=== PATIENT | male | born 1960 ===

== ENCOUNTER 2020-06-03 17:30 | Inpatient (IN) | payer OTHER ==
[~2020-06-03] VITALS: Ht 170.2 cm; Wt 89.0 kg
[2020-06-03] MEDS ORDERED: ONDANSETRON 4 MG/2 ML (SDV) Z0FRAN IV PRN (18:30)
[2020-06-03] MEDS ORDERED: ACETAMINOPHEN 325 MG TABLET PO PRN (18:30)
[2020-06-03] MEDS ORDERED: guaiFENesin SYRUP 100 MG/5 ML 10 ML (ROBITUSSIN SF) PO PRN (18:30)
--- NOTE | 2020-06-03 20:45 | NUR ---
BRIDGETTE HUTCHISON admitted to room 427-1, with an admitting diagnosis of Covid, on 06/03/20 from [facility] via EMS. BRIDGETTE HUTCHISON introduced to surroundings, call light, bed controls, phone, TV, temperature control, lights, meal times, smoking policy, visitor policy, side rail policy, bathrooms and showers. Patient Rights given to patient in the handbook. BRIDGETTE HUTCHISON verbalizes understanding that [facility] is not responsible for the loss or damage to any personal effects or valuables that are kept in the patients possession during their hospitalization.
[2020-06-03 21:01] VITALS: BP 114/67
--- NOTE | 2020-06-03 21:40 | NUR ---
2129 - O2 increased to 5L NC due to o2 sats falling into 85-87%. RT notified. 2134 - RT here at this time - Nasal Cannula changed to Hi Aftab and increased to 6L - O2 saturation remains in around 87% 2139 - flow increased to 8L (hi-aftab) - pt able to maintain o2 saturation above 90% Will continue to monitor.
[2020-06-03] MEDS ORDERED: AZITHROMYCIN 250 MG TAB (ZITHROMAX) PO SCH (22:00)
[2020-06-03] MEDS ORDERED: dexAMETHasone 6 MG TAB (DECADRON) PO SCH (22:00)
[2020-06-03] MEDS ORDERED: cefTRIAXone FOR IV USE 1,000 MG in WATER (STERILE) FOR INJECTION 10 ML IV SCH (22:00)
[2020-06-03 22:09] VITALS: BP 114/76
[2020-06-03] MEDS: RT-ALBUTEROL INHALER HFA (VENTOLIN HFA) 18 GM IH PRN (23:24)
[2020-06-03 23:57] VITALS: BP 114/70
[2020-06-04] VITALS (8 sets, daily range): BP systolic 119–146; BP diastolic 70–83
[2020-06-04] MEDS: RT-ALBUTEROL INHALER HFA (VENTOLIN HFA) 18 GM IH SCH ×3 (02:37→22:17)
[2020-06-04 05:27] LABS: HEMOGLOBIN 12.9 g/dL (13.3-17.7); WHITE BLOOD COUNT 7.4 10^3/uL (4.3-11.0)
[2020-06-04 05:37] LABS: ALBUMIN 3.2 GM/DL (3.2-4.5); CHLORIDE 99 MMOL/L (98-107); POTASSIUM 3.8 MMOL/L (3.6-5.0); SODIUM 137 MMOL/L (135-145)
[2020-06-04 05:39] LABS: GLUCOSE 137 MG/DL (70-105)
[2020-06-04 05:40] LABS: TOTAL PROTEIN 6.9 GM/DL (6.4-8.2)
[2020-06-04 05:41] LABS: BILIRUBIN,TOTAL 0.7 MG/DL (0.1-1.0); CARBON DIOXIDE 26 MMOL/L (21-32)
[2020-06-04 05:43] LABS: ALKALINE PHOSPHATASE 135 U/L (40-136); CREATININE SERUM 0.76 MG/DL (0.60-1.30); GFR ESTIMATED > 60
[2020-06-04 05:44] LABS: BUN/CREATININE RATIO 16
[2020-06-04 05:46] LABS: ALANINE AMINOTRANSFERASE 197 U/L (0-55)
[2020-06-04] MEDS: dexAMETHasone 6 MG TAB (DECADRON) PO SCH (09:05)
[2020-06-04] MEDS: AZITHROMYCIN 250 MG TAB (ZITHROMAX) PO SCH (09:05)
[2020-06-04] MEDS ORDERED: NS IV 500 ML 500 ML IV SCH (10:50)
--- NOTE | 2020-06-04 11:44 | History & Physical-Hospitalist ---
History of Present Illness HPI/Chief Complaint Pt is a 59yoCM who was diagnosed with COVID19 on 05/20 after becoming symptomatic on 05/19 and became short of breath yesterday. 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 He has had some nausea and vomiting with diarrhea and decided to seek evaluation in the ER. She was hypoxic in the mid 80s on arrival but did well with 2lpm. He was transferred here for admission. He reports feeling better today. No complaints. Sisters on the phone while I was talking with him and all questions answered. Source: patient Date Seen 06/04/20 Time Seen by a Provider: 11:32 Attending Physician Cielo Echeverria MD PCP No,Local Physician Referring Physician Date of Admission Jun 03, 2020 at 20:53 Home Medications & Allergies Home Medications Reviewed patient Home Medication Reconciliation performed by pharmacy medication reconciliations fiscal technician and/or nursing. Patients Allergies have been reviewed. Allergies Allergies Coded Allergies No Allergy Information Available ([id number]/1/20) Past Ynwhpye-Aqysra-Fqbwnr Hx Past Med/Social Hx: Reviewed Nursing Past Med/Soc Hx Patient Social History Employed/Student: employed Alcohol Use: Denies Use Recreational Drug Use: No Smoking Status: Never a Smoker Physical Abuse Screen: No Sexual Abuse: No Recent Foreign Travel: No Contact w/other who traveled: No Recent Hopitalizations: No Recent Infectious Disease Expo: No Immunizations Up To Date Date of Influenza Vaccine: Apr 11, 2020 Seasonal Allergies Seasonal Allergies: No Past Medical History Currently Using CPAP: No Currently Using BIPAP: No Gastrointestinal: Gastroesophageal Reflux History of Blood Disorders: No Adverse Reaction to Blood Bee: No Family History Diabetes mellitus 19 MOTHER Review of Systems Constitutional: fever, malaise EENTM: no symptoms reported Respiratory: cough, short of breath Cardiovascular: no symptoms reported Gastrointestinal: diarrhea, nausea, vomiting Genitourinary: no symptoms reported Musculoskeletal: no symptoms reported Skin: no symptoms reported Psychiatric/Neurological: No Symptoms Reported Physical Exam Physical Exam Vital Signs Vital Signs - First Documented 06/03/20 06/03/20 20:45 22:09 Pulse Ox 94 O2 Delivery High Flow N/C O2 Flow Rate 8.00 FiO2 32 Capillary Refill : Less Than 3 Seconds Height, Weight, BMI Height: '" Weight: lbs. oz. kg; 30.72 BMI Method: General Appearance: No Apparent Distress, WD/WN HEENT: PERRL/EOMI (dysconjugate gaze), Moist Mucous Membranes Neck: Normal Inspection, Supple Respiratory: No Accessory Muscle Use, Rhonci, Other (on 3lpm NC) Cardiovascular: Regular Rate, Rhythm, No Murmur Gastrointestinal: Normal Bowel Sounds, Non Tender, Soft Extremity: Normal Capillary Refill, No Calf Tenderness, No Pedal Edema Neurologic/Psychiatric: Alert, Oriented x3, Normal Mood/Affect Skin: Normal Color, Warm/Dry Results Results/Procedures Labs Laboratory Tests 06/04/20 05:10 Patient resulted labs reviewed. Assessment/Plan Admission Diagnosis Acute hypoxic Respiratory Failure due to COVID19 Admission Status: Inpatient Order (span 2 midnights) Reason for Inpatient Admission: see below Assessment and Plan Acute hypoxic Respiratory Failure due to COVID19 Secondary pneumonia Continue on Rocephin and azithromycin Outside of window for Remdesivir Decadron Convalescent plasma ordered, discussed EUA status with pt and sisters, all agreeable to treatment Lovenox MAT protcol IS transaminitis Trend, mild HTN BP well controlled, trend DVT ppx: lovenox Diagnosis/Problems Diagnosis/Problems (1) Acute respiratory failure Status: Acute Qualifiers: Respiratory failure complication: hypoxia Qualified Codes: J96.01 - Acute respiratory failure with hypoxia (2) COVID-19 Status: Acute (3) Transaminitis Status: Acute (4) CAP (community acquired pneumonia) Clinical Quality Measures DVT/VTE Risk/Contraindication: Risk Factor Score Per Nursin RFS Level Per Nursing on Admit: 4+=Very High CIELO ECHEVERRIA MD Jun 04, 2020 11:44
[2020-06-04] MEDS: cefTRIAXone FOR IV USE 1,000 MG in WATER (STERILE) FOR INJECTION 10 ML IV SCH (13:25)
[2020-06-04] MEDS: RT-ALBUTEROL INHALER HFA (VENTOLIN HFA) 18 GM IH PRN (13:27)
[2020-06-04] MEDS ORDERED: LOSA1TAB23 PO (13:28)
[2020-06-04] MEDS ORDERED: OMEP40CA27 PO (13:28)
--- NOTE | 2020-06-04 13:29 | NUR ---
SPOKE WITH THE PT (I CALLED HIS ROOM PHONE) AND CALLED [facility] TO COMPLETE THE MED REC 05-06-2020 LOSARTAN/HCTZ 100/25MG #30/30DS 05-06-2020 OMEPRAZOLE 40MG #60/30DS PT MENTIONED A CHOLESTEROL MEDICATION BUT THE PHARMACY HAD NO RECORD OF THIS. OTC MEDS: NONE
[2020-06-04] MEDS: ENOXAPARIN 40 MG/0.4 ML (LOVENOX) SYR SQ SCH (15:22)
[2020-06-04] MEDS: PANTOPRAZOLE 40 MG (PROTONIX) TAB PO SCH (20:31)
[2020-06-05] VITALS (7 sets, daily range): BP systolic 115–168; BP diastolic 56–89
[2020-06-05] MEDS: RT-ALBUTEROL INHALER HFA (VENTOLIN HFA) 18 GM IH SCH ×3 (02:44→21:42)
[2020-06-05 08:03] LABS: HEMOGLOBIN 12.7 g/dL (13.3-17.7); MEAN PLATELET VOLUME 10.1 fL (9.0-12.2); WHITE BLOOD COUNT 12.3 10^3/uL (4.3-11.0)
[2020-06-05 08:12] LABS: ALBUMIN 3.2 GM/DL (3.2-4.5); CHLORIDE 101 MMOL/L (98-107); POTASSIUM 3.9 MMOL/L (3.6-5.0); SODIUM 139 MMOL/L (135-145)
[2020-06-05 08:13] LABS: CALCIUM 8.2 MG/DL (8.5-10.1)
[2020-06-05 08:15] LABS: GLUCOSE 120 MG/DL (70-105); TOTAL PROTEIN 6.9 GM/DL (6.4-8.2)
[2020-06-05 08:16] LABS: BILIRUBIN,TOTAL 0.4 MG/DL (0.1-1.0); CARBON DIOXIDE 24 MMOL/L (21-32)
[2020-06-05 08:18] LABS: ALKALINE PHOSPHATASE 133 U/L (40-136); CREATININE SERUM 0.74 MG/DL (0.60-1.30); GFR ESTIMATED > 60
[2020-06-05 08:19] LABS: BUN/CREATININE RATIO 19
[2020-06-05 08:21] LABS: ALANINE AMINOTRANSFERASE 208 U/L (0-55)
[2020-06-05] MEDS: PANTOPRAZOLE 40 MG (PROTONIX) TAB PO SCH ×2 (08:57→20:04)
[2020-06-05] MEDS: dexAMETHasone 6 MG TAB (DECADRON) PO SCH (08:57)
[2020-06-05] MEDS: AZITHROMYCIN 250 MG TAB (ZITHROMAX) PO SCH (08:57)
--- NOTE | 2020-06-05 13:13 | Progress Note - Hospitalist ---
Subjective HPI/CC On Admission Date Seen by Provider: Jun 05, 2020 Time Seen by Provider: 13:04 Pt is a 59yoCM who was diagnosed with COVID19 on 05/20 after becoming symptomatic on 05/19 and became short of breath yesterday. 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 He has had some nausea and vomiting with diarrhea and decided to seek evaluation in the ER. She was hypoxic in the mid 80s on arrival but did well with 2lpm. He was transferred here for admission. He reports feeling better today. No complaints. Sisters on the phone while I was talking with him and all questions answered. Subjective/Events-last exam Pt reports feeling better today. No complaints. Only concern is that he didn't like the lunch option but is excited for chicken strips. Focused Exam Lactate Level 06/04/20 05:10: Lactic Acid Level 1.83 Objective Exam Vital Signs Vital Signs Date Time Temp Pulse Resp B/P (MAP) Pulse Ox O2 Delivery O2 Flow Rate FiO2 06/05/20 08:05 92 High Flow N/C 5.00 06/05/20 08:00 36.2 50 18 133/86 (102) 06/03/20 22:09 32 Capillary Refill : Less Than 3 SecondsLess Than 3 Seconds General Appearance: No Apparent Distress, Chronically ill Cardiovascular: Regular Rate, Rhythm, No Murmur Gastrointestinal: Normal Bowel Sounds, Non Tender, Soft Neurologic/Psychiatric: Alert, Oriented x3 Results/Procedures Lab Laboratory Tests 06/05/20 07:52 Patient resulted labs reviewed. Assessment/Plan Assessment and Plan Assess & Plan/Chief Complaint Acute hypoxic Respiratory Failure due to COVID19 Secondary pneumonia Continue on Rocephin and azithromycin Outside of window for Remdesivir Decadron Convalescent plasma ordered, discussed EUA status with pt and sisters, all agreeable to treatment Lovenox MAT protcol IS transaminitis Trend, mild HTN BP well controlled, trend DVT ppx: lovenox Diagnosis/Problems Diagnosis/Problems (1) Acute respiratory failure Status: Acute Qualifiers: Respiratory failure complication: hypoxia Qualified Codes: J96.01 - Acute respiratory failure with hypoxia (2) COVID-19 Status: Acute (3) Transaminitis Status: Acute (4) CAP (community acquired pneumonia) Clinical Quality Measures DVT/VTE Risk/Contraindication: Risk Factor Score Per Nursin RFS Level Per Nursing on Admit: 4+=Very High CIELO CHAVARRIA MD Jun 05, 2020 13:13
[2020-06-05] MEDS: cefTRIAXone FOR IV USE 1,000 MG in WATER (STERILE) FOR INJECTION 10 ML IV SCH (13:20)
[2020-06-05] MEDS: ENOXAPARIN 40 MG/0.4 ML (LOVENOX) SYR SQ SCH (15:50)
[2020-06-06] MEDS: RT-ALBUTEROL INHALER HFA (VENTOLIN HFA) 18 GM IH SCH ×4 (04:22→19:17)
[2020-06-06 08:00] VITALS: BP 118/70
[2020-06-06] MEDS: PANTOPRAZOLE 40 MG (PROTONIX) TAB PO SCH ×2 (09:49→20:09)
[2020-06-06] MEDS: AZITHROMYCIN 250 MG TAB (ZITHROMAX) PO SCH (09:49)
[2020-06-06] MEDS: dexAMETHasone 6 MG TAB (DECADRON) PO SCH (09:49)
--- NOTE | 2020-06-06 10:29 | NUR ---
Patient states that he is feeling really depressed and irritable without his depression medication. Contacted patients sister Mireille. She stated patient takes 40mg of Paxil daily. Dr. Echeverria notified medication ordered.
--- NOTE | 2020-06-06 12:43 | Progress Note - Hospitalist ---
Subjective HPI/CC On Admission Date Seen by Provider: Jun 06, 2020 Time Seen by Provider: 12:39 Pt is a 59yoCM who was diagnosed with COVID19 on 05/20 after becoming symptomatic on 05/19 and became short of breath yesterday. 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 He has had some nausea and vomiting with diarrhea and decided to seek evaluation in the ER. She was hypoxic in the mid 80s on arrival but did well with 2lpm. He was transferred here for admission. He reports feeling better today. No complaints. Sisters on the phone while I was talking with him and all questions answered. Subjective/Events-last exam Pt reports having a rough night because he is worried about how he is going to pay for this hospital stay. Otherwise no physical complaints. I did inform him we could have financial services see him to discuss options. Focused Exam Lactate Level 06/04/20 05:10: Lactic Acid Level 1.83 Objective Exam Vital Signs Vital Signs Date Time Temp Pulse Resp B/P (MAP) Pulse Ox O2 Delivery O2 Flow Rate FiO2 06/05/20 23:51 36.1 56 18 168/89 (115) 95 High Flow N/C 5.00 06/03/20 22:09 32 Capillary Refill : Less Than 3 SecondsLess Than 3 Seconds General Appearance: No Apparent Distress, Chronically ill Respiratory: Lungs Clear, No Accessory Muscle Use, Other (on 3lpm) Cardiovascular: Regular Rate, Rhythm, No Murmur Gastrointestinal: Normal Bowel Sounds, Non Tender, Soft Neurologic/Psychiatric: Alert, Oriented x3 Results/Procedures Lab Patient resulted labs reviewed. Assessment/Plan Assessment and Plan Assess & Plan/Chief Complaint Acute hypoxic Respiratory Failure due to COVID19 Secondary pneumonia Continue on Rocephin and azithromycin Outside of window for Remdesivir Decadron Convalescent plasma transfused Lovenox MAT protcol IS transaminitis Trend, mild HTN BP trending up resume home meds Anxiety and Depression Resume home Paxil DVT ppx: lovenox Diagnosis/Problems Diagnosis/Problems (1) Acute respiratory failure Status: Acute Qualifiers: Respiratory failure complication: hypoxia Qualified Codes: J96.01 - Acute respiratory failure with hypoxia (2) COVID-19 Status: Acute (3) Transaminitis Status: Acute (4) CAP (community acquired pneumonia) Clinical Quality Measures DVT/VTE Risk/Contraindication: Risk Factor Score Per Nursin RFS Level Per Nursing on Admit: 4+=Very High CIELO CHAVARRIA MD Jun 06, 2020 12:43
--- NOTE | 2020-06-06 15:12 | NUR ---
Referral for signs of depression: Pt shared that he is Jewish and feels God is present with him and understands his suffering. He shared that he was 15 years ago yesterday, and that their divorce was finalized last month. The Patient expressed that he has financial concerns as a result of his hospitalization, but that he continues to trust God to provide for him. Teletype Adjuster provided active listening and encouraged reflection rooted in dynamic stuart in God. The patient offered a prayer for this Teletype Adjuster and for all hospital staff, thanking God for all who put themselves at risk to care for others.
[2020-06-06 15:42] VITALS: BP 119/71
[2020-06-06] MEDS: ENOXAPARIN 40 MG/0.4 ML (LOVENOX) SYR SQ SCH (15:52)
[2020-06-06] MEDS: cefTRIAXone FOR IV USE 1,000 MG in WATER (STERILE) FOR INJECTION 10 ML IV SCH (15:52)
--- NOTE | 2020-06-06 16:50 | NUR ---
Pt has been worried about the medical bills and [employer] Counselor discussed with pt our financial assistance program and will mail him appliction. Pt has health insurance thro the [facility]. Pt is unsure of his post discharge needs. will follow
[2020-06-06 23:32] VITALS: BP 154/67
[2020-06-07] MEDS: RT-ALBUTEROL INHALER HFA (VENTOLIN HFA) 18 GM IH SCH ×5 (02:58→21:12)
[2020-06-07 07:56] VITALS: BP 133/64
[2020-06-07] MEDS: PANTOPRAZOLE 40 MG (PROTONIX) TAB PO SCH ×2 (08:21→20:14)
[2020-06-07] MEDS: dexAMETHasone 6 MG TAB (DECADRON) PO SCH (08:21)
[2020-06-07] MEDS: AZITHROMYCIN 250 MG TAB (ZITHROMAX) PO SCH (08:21)
[2020-06-07] MEDS: PARoxetine 20 MG (PAXIL) TAB PO SCH (08:25)
[2020-06-07] MEDS: LOSARTAN 100 MG (COZAAR) TABLET PO SCH (09:15)
[2020-06-07] MEDS: HYDROCHLOROTHIAZIDE 25 MG (HCTZ) TAB PO SCH (09:17)
--- NOTE | 2020-06-07 10:42 | NUR ---
Notified Dr. Echeverria that patient had removed his oxygen himself this morning because he wanted to wean himself off. Patient was SOA upon entering room and oxygen saturation in the 80s. Patient oxygen reapplied. RT contacted. Patient back on 5L high flow NC and his oxygen saturation is 94% at this time.
--- NOTE | 2020-06-07 11:39 | Progress Note - Hospitalist ---
Subjective HPI/CC On Admission Date Seen by Provider: Jun 07, 2020 Time Seen by Provider: 11:34 Pt is a 59yoCM who was diagnosed with COVID19 on 05/20 after becoming symptomatic on 05/19 and became short of breath yesterday. 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 He has had some nausea and vomiting with diarrhea and decided to seek evaluation in the ER. She was hypoxic in the mid 80s on arrival but did well with 2lpm. He was transferred here for admission. He reports feeling better today. No complaints. Sisters on the phone while I was talking with him and all questions answered. Subjective/Events-last exam Pt reports feeling well now. Tried to titrate himself off oxygen earlier today and dropped the the 80s. Needed 15lpm to recover but now back down to 5. Disc ussed importance of allowing us to do it safely. Objective Exam Vital Signs Vital Signs Date Time Temp Pulse Resp B/P (MAP) Pulse Ox O2 Delivery O2 Flow Rate FiO2 06/07/20 08:55 91 High Flow N/C 5.00 06/07/20 07:56 36.2 51 18 133/64 (87) 06/03/20 22:09 32 Capillary Refill : Less Than 3 SecondsLess Than 3 Seconds General Appearance: No Apparent Distress, Chronically ill Respiratory: Lungs Clear, No Accessory Muscle Use, Other (on 5lpm ) Cardiovascular: Regular Rate, Rhythm, No Murmur Neurologic/Psychiatric: Alert, Oriented x3 Results/Procedures Lab Patient resulted labs reviewed. Assessment/Plan Assessment and Plan Assess & Plan/Chief Complaint Acute hypoxic Respiratory Failure due to COVID19 Secondary pneumonia Continue on Rocephin and azithromycin Outside of window for Remdesivir Decadron s/p 1 unit Convalescent plasma Lovenox MAT protcol IS transaminitis stable HTN BP well controlled this morning Anxiety and Depression Paxil DVT ppx: lovenox Diagnosis/Problems Diagnosis/Problems (1) Acute respiratory failure Status: Acute Qualifiers: Respiratory failure complication: hypoxia Qualified Codes: J96.01 - Acute respiratory failure with hypoxia (2) COVID-19 Status: Acute (3) Transaminitis Status: Acute (4) CAP (community acquired pneumonia) Clinical Quality Measures DVT/VTE Risk/Contraindication: Risk Factor Score Per Nursin RFS Level Per Nursing on Admit: 4+=Very High CIELO CHAVARRIA MD Jun 07, 2020 11:39
[2020-06-07] MEDS: cefTRIAXone FOR IV USE 1,000 MG in WATER (STERILE) FOR INJECTION 10 ML IV SCH (13:42)
[2020-06-07] MEDS: ENOXAPARIN 40 MG/0.4 ML (LOVENOX) SYR SQ SCH (17:40)
[2020-06-07 19:40] VITALS: BP 160/74
[2020-06-08] MEDS: RT-ALBUTEROL INHALER HFA (VENTOLIN HFA) 18 GM IH SCH ×3 (02:36→19:11)
[2020-06-08 07:15] LABS: HEMOGLOBIN 13.7 g/dL (13.3-17.7); MEAN PLATELET VOLUME 9.8 fL (9.0-12.2); WHITE BLOOD COUNT 11.1 10^3/uL (4.3-11.0)
[2020-06-08 07:20] VITALS: BP 126/74
[2020-06-08 07:49] LABS: ALANINE AMINOTRANSFERASE 148 U/L (0-55); ALBUMIN 3.2 GM/DL (3.2-4.5); ALKALINE PHOSPHATASE 125 U/L (40-136); BILIRUBIN,TOTAL 0.5 MG/DL (0.1-1.0); BUN/CREATININE RATIO 21; CALCIUM 8.6 MG/DL (8.5-10.1); CARBON DIOXIDE 27 MMOL/L (21-32); CHLORIDE 102 MMOL/L (98-107); CREATININE SERUM 0.73 MG/DL (0.60-1.30); GFR ESTIMATED > 60; GLUCOSE 86 MG/DL (70-105); POTASSIUM 4.7 MMOL/L (3.6-5.0); SODIUM 142 MMOL/L (135-145); TOTAL PROTEIN 6.4 GM/DL (6.4-8.2)
[2020-06-08] MEDS: LOSARTAN 100 MG (COZAAR) TABLET PO SCH (08:24)
[2020-06-08] MEDS: PARoxetine 20 MG (PAXIL) TAB PO SCH (08:25)
[2020-06-08] MEDS: dexAMETHasone 6 MG TAB (DECADRON) PO SCH (08:25)
[2020-06-08] MEDS: AZITHROMYCIN 250 MG TAB (ZITHROMAX) PO SCH (08:25)
[2020-06-08] MEDS: PANTOPRAZOLE 40 MG (PROTONIX) TAB PO SCH ×2 (08:25→20:01)
[2020-06-08] MEDS: HYDROCHLOROTHIAZIDE 25 MG (HCTZ) TAB PO SCH (08:26)
--- NOTE | 2020-06-08 13:53 | Progress Note - Hospitalist ---
Subjective HPI/CC On Admission Date Seen by Provider: Jun 08, 2020 Time Seen by Provider: 13:52 Pt is a 59yoCM who was diagnosed with COVID19 on 05/20 after becoming symptomatic on 05/19 and became short of breath yesterday. 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 He has had some nausea and vomiting with diarrhea and decided to seek evaluation in the ER. She was hypoxic in the mid 80s on arrival but did well with 2lpm. He was transferred here for admission. He reports feeling better today. No complaints. Sisters on the phone while I was talking with him and all questions answered. Subjective/Events-last exam Pt reports doing well. No complaints. Hopeful to DC home soon. Still on 5lpm. I called and updated his sister while at bedside at his request. Objective Exam Vital Signs Vital Signs Date Time Temp Pulse Resp B/P (MAP) Pulse Ox O2 Delivery O2 Flow Rate FiO2 06/08/20 09:32 94 High Flow N/C 5.00 06/08/20 07:20 35.9 50 20 126/74 (91) 06/03/20 22:09 32 Capillary Refill : Less Than 3 SecondsLess Than 3 Seconds General Appearance: No Apparent Distress, Chronically ill Respiratory: Lungs Clear, No Accessory Muscle Use, Other (on 5lpm NC) Cardiovascular: Regular Rate, Rhythm, No Murmur Gastrointestinal: Normal Bowel Sounds, Non Tender, Soft Neurologic/Psychiatric: Alert, Oriented x3 Results/Procedures Lab Laboratory Tests 06/08/20 07:00 Patient resulted labs reviewed. Assessment/Plan Assessment and Plan Assess & Plan/Chief Complaint Acute hypoxic Respiratory Failure due to COVID19 Secondary pneumonia Continue on Rocephin and azithromycin Outside of window for Remdesivir Decadron s/p 1 unit Convalescent plasma Lovenox MAT protcol IS Home oxygen study ordered transaminitis stable HTN BP well controlled still Anxiety and Depression Paxil DVT ppx: lovenox Diagnosis/Problems Diagnosis/Problems (1) Acute respiratory failure Status: Acute Qualifiers: Respiratory failure complication: hypoxia Qualified Codes: J96.01 - Acute respiratory failure with hypoxia (2) COVID-19 Status: Acute (3) Transaminitis Status: Acute (4) CAP (community acquired pneumonia) Clinical Quality Measures DVT/VTE Risk/Contraindication: Risk Factor Score Per Nursin RFS Level Per Nursing on Admit: 4+=Very High CIELO CHAVARRIA MD Jun 08, 2020 13:53
[2020-06-08] MEDS: ENOXAPARIN 40 MG/0.4 ML (LOVENOX) SYR SQ SCH (15:07)
[2020-06-08] MEDS: cefTRIAXone FOR IV USE 1,000 MG in WATER (STERILE) FOR INJECTION 10 ML IV SCH (15:07)
[2020-06-08 19:48] VITALS: BP 105/59
[2020-06-09] MEDS: RT-ALBUTEROL INHALER HFA (VENTOLIN HFA) 18 GM IH SCH ×4 (02:38→20:15)
[2020-06-09 08:13] VITALS: BP 127/69
[2020-06-09] MEDS: dexAMETHasone 6 MG TAB (DECADRON) PO SCH (08:59)
[2020-06-09] MEDS: HYDROCHLOROTHIAZIDE 25 MG (HCTZ) TAB PO SCH (09:00)
[2020-06-09] MEDS: PANTOPRAZOLE 40 MG (PROTONIX) TAB PO SCH ×2 (09:01→20:13)
[2020-06-09] MEDS: LOSARTAN 100 MG (COZAAR) TABLET PO SCH (09:01)
[2020-06-09] MEDS: PARoxetine 20 MG (PAXIL) TAB PO SCH (09:01)
--- NOTE | 2020-06-09 09:39 | NUR ---
SPO2 DROPPED TO 87% ON ROOM AIR @ REST. REPLACED O2 @ 5 LPM. SPO2 STAYED AT 90% WITH EXERTION.
[2020-06-09] MEDS ORDERED: CEFDINIR 300 MG (OMNICEF) CAP PO NR (11:45)
[2020-06-09] MEDS ORDERED: CEFD300C3 PO (11:46)
[2020-06-09 14:56] VITALS: BP 127/69
[2020-06-09] MEDS: ENOXAPARIN 40 MG/0.4 ML (LOVENOX) SYR SQ SCH ×2 (15:04→15:46)
--- NOTE | 2020-06-09 16:23 | NUR ---
Pt planned to be discharged today but requires 5 liters of home oxygen. He lives in [place], [place] and after dealing with 3 DME providers did find one [facility] from [place], [place] which agreed to provide home oxygen. They met pt's sister Mireille who lives next door to patient and given her a portable unit to bring to the hospital when discharged as she has agreed to transport him home tomorrow morning but states it's impossible for her to come to the hospital tonight as she can't see at night to drive. Niether pt nor sister knew of any other way he could get home. Will advise Dr. Villela.
--- NOTE | 2020-06-09 18:42 | Progress Note - Hospitalist ---
Subjective HPI/CC On Admission Date Seen by Provider: Jun 09, 2020 Time Seen by Provider: 11:00 Pt is a 59yoCM who was diagnosed with COVID19 on 05/20 after becoming symptomatic on 05/19 and became short of breath yesterday. 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 He has had some nausea and vomiting with diarrhea and decided to seek evaluation in the ER. She was hypoxic in the mid 80s on arrival but did well with 2lpm. He was transferred here for admission. He reports feeling better today. No complaints. Sisters on the phone while I was talking with him and all questions answered. Subjective/Events-last exam He reports feeling good. He is up brushing his teeth in the bathroom upon my arrival. He has been up and moving around without issue. He denies shortness of breath. He denies pain. He feels ready to go home. We called his sister and discussed the plan. Objective Exam Vital Signs Vital Signs Date Time Temp Pulse Resp B/P (MAP) Pulse Ox O2 Delivery O2 Flow Rate FiO2 06/09/20 15:55 91 High Flow N/C 5.00 06/09/20 14:56 36.1 82 18 127/69 06/03/20 22:09 32 Capillary Refill : Less Than 3 SecondsLess Than 3 Seconds General Appearance: No Apparent Distress, WD/WN Respiratory: Lungs Clear, Normal Breath Sounds, No Respiratory Distress Cardiovascular: Regular Rate, Rhythm, No Edema, No Murmur Gastrointestinal: Normal Bowel Sounds, Non Tender, Soft Extremity: Normal Inspection, Non Tender, No Pedal Edema Neurologic/Psychiatric: Alert, Oriented x3, No Motor/Sensory Deficits, Normal Mood/Affect Skin: Normal Color, Warm/Dry Results/Procedures Lab Patient resulted labs reviewed. Assessment/Plan Assessment and Plan Assess & Plan/Chief Complaint Acute Respiratory Failure due to COVID-19 Secondary pneumonia Outside of window for Remdesivir Continue Decadron s/p 1 unit Convalescent plasma Completed course of Rocephin and Azithromycin Transitioned to oral Omnicef Lovenox MAT protcol IS Home oxygen study revealed 5 L continuous need Transaminitis stable HTN BP well controlled still Anxiety and Depression Paxil DVT ppx: lovenox Diagnosis/Problems Diagnosis/Problems (1) Acute respiratory failure Status: Acute Qualifiers: Respiratory failure complication: hypoxia Qualified Codes: J96.01 - Acute respiratory failure with hypoxia (2) COVID-19 Status: Acute Clinical Quality Measures DVT/VTE Risk/Contraindication: Risk Factor Score Per Nursin RFS Level Per Nursing on Admit: 4+=Very High VANDANA HARDY MD Jun 09, 2020 18:42
[2020-06-09 19:33] VITALS: BP 101/59
[2020-06-09] MEDS: CEFDINIR 300 MG (OMNICEF) CAP PO SCH (20:13)
[2020-06-10] MEDS: RT-ALBUTEROL INHALER HFA (VENTOLIN HFA) 18 GM IH SCH (01:46)
[2020-06-10 08:00] VITALS: BP 133/75
[2020-06-10] MEDS: CEFDINIR 300 MG (OMNICEF) CAP PO SCH (09:27)
[2020-06-10] MEDS: dexAMETHasone 6 MG TAB (DECADRON) PO SCH (09:27)
[2020-06-10] MEDS: HYDROCHLOROTHIAZIDE 25 MG (HCTZ) TAB PO SCH (09:27)
[2020-06-10] MEDS: LOSARTAN 100 MG (COZAAR) TABLET PO SCH (09:27)
[2020-06-10] MEDS: PANTOPRAZOLE 40 MG (PROTONIX) TAB PO SCH (09:27)
[2020-06-10] MEDS: PARoxetine 20 MG (PAXIL) TAB PO SCH (09:28)
== END 2020-06-10 10:45 | disposition home or self-care (01) | DRG 177 ==
LOC: 4TH 20:53
PROVIDERS: ADMIT Family Medicine; ATTEND Internal Medicine
PROC: XW13325 Transfusion of Convalescent Plasma (Nonautologous) into Peripheral Vein, Percutaneous Approach, New Technology Group 5 (ICD-10-PCS; principal; 2020-06-04)
DX: U07.1 COVID-19 (principal); J96.01 Acute respiratory failure with hypoxia; J12.89 Other viral pneumonia; I10 Essential (primary) hypertension; K21.9 Gastro-esophageal reflux disease without esophagitis; R74.01 Elevation of levels of liver transaminase levels; F41.9 Anxiety disorder, unspecified; F32.9 Major depressive disorder, single episode, unspecified; Z73.0 Burn-out
CPT/HCPCS: 36415; 80053; 82728; 83605; 83615; 84145; 85027; 86900; 86901; 87081; 94640; 94664; 94760; 94761